=== PATIENT | male | born 1940 | race Caucasian/White ===

== ENCOUNTER → 2017-05-06 08:54 | Emergency (ER) | payer MEDICARE, OTHER ==
[~2017-05-06 08:54] MED LIST: diPHENhydraMINE PO* 25 MG PO ONE
--- NOTE | 2017-05-06 10:31 | ED ---
Allergic Reaction/Systemic - HPI Summary HPI Summary: 76 y/o male with h/o hives, lip swelling x 24 hours, worsened overnight. no medication, no medical problems other than hard of hearing. no SOB, ate breakfast this morning without difficutly, no difficulty swallowing. no prior reactions, has also been working in [place], no insulation exposure. and was mowing lawn yesterday. no new foods, meds. - History of Current Complaint Chief Complaint: EDAllergicReaction Time Seen by Provider: 05/06/17 09:53 Hx Obtained From: Patient, Family/Boat Builder And Repairer - Onset/Duration: Sudden Onset, Started hours ago Timing: Lasting Hours Severity Initially: Mild Severity Currently: Mild Pain Intensity: 0 Pain Scale Used: 0-10 Numeric - Allergies/Home Medications Allergies/Adverse Reactions: Allergies Allergy/AdvReac Type Severity Reaction Status Date / Time SULFA Allergy Mild Rash Uncoded 07/04/15 09:45 PMH/Surg Hx/FS Hx/Imm Hx Previously Healthy: Yes Endocrine/Hematology History: Denies: Hx Anticoagulant Therapy, Hx Diabetes, Hx Thyroid Disease Cardiovascular History: Denies: Hx Hypertension, Hx Pacemaker/ICD Respiratory History: Denies: Hx Asthma, Hx Chronic Obstructive Pulmonary Disease (COPD) History: Denies: Hx Renal Disease Musculoskeletal History: Reports: Hx Arthritis, Other Musculoskeletal History - HAIRLINE CRACK IN PELVIS Sensory History: Reports: Hx Cataracts, Hx Contacts or Glasses - GLASSES, Hx Hearing Aid - BOTH EARS Opthamlomology History: Reports: Hx Cataracts, Hx Contacts or Glasses - GLASSES Neurological History: Denies: Hx Dementia, Hx Seizures Psychiatric History: Reports: Hx Anxiety - HISTORY OF/ OFF AND ON - Cancer History Cancer Type, Location and Year: prostate 1988 - Surgical History Surgery Procedure, Year, and Place: [id number]. DEVIATED SEPTUM. 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 Hx Anesthesia Reactions: Yes - SLOW TO WAKE UP Infectious Disease History: No Infectious Disease History: Denies: Hx Hepatitis, Hx Human Immunodeficiency Virus (HIV), Traveled Outside the US in Last 30 Days - Social History Alcohol Use: Occasionally Substance Use Type: Reports: None Smoking Status (MU): Never Smoked Tobacco Review of Systems Positive: Rash, Other - lip swelling All Other Systems Reviewed And Are Negative: Yes Physical Exam Triage Information Reviewed: Yes Vital Signs On Initial Exam: Initial Vitals Temp Pulse Resp BP Pulse Ox 96.8 F 79 17 136/76 98 05/06/17 08:57 05/06/17 08:57 05/06/17 08:57 05/06/17 08:57 05/06/17 08:57 Vital Signs Reviewed: Yes Appearance: Positive: Well-Appearing, No Pain Distress, Well-Nourished Skin: Positive: Warm, Skin Color Reflects Adequate Perfusion, Other - raised, erythematous circular rash throughout extremities, trunk, back, larges patch L wrist ~ 9cm x 4cm. + warm, multiple urticaria throughout extremities. Head/Face: Positive: Normal Head/Face Inspection Eyes: Positive: EOMI ENT: Positive: Pharynx normal - no swelling noted, minimal swelling noted bottom lip, no difficulty with talking. Neck: Positive: Supple, Nontender Respiratory/Lung Sounds: Positive: Clear to Auscultation, Breath Sounds Present Cardiovascular: Positive: Normal, RRR, Bradycardia Neurological: Positive: Normal, Sensory/Motor Intact, Alert, Oriented to Person Place, Time Psychiatric: Positive: Normal AVPU Assessment: Alert Diagnostics - Vital Signs Vital Signs Temp Pulse Resp BP Pulse Ox 05/06/17 08:57 96.8 F 79 17 136/76 98 - Laboratory Lab Statement: Any lab studies that have been ordered have been reviewed, and results considered in the medical decision making process. Allergic Reaction Course/Dx - Course Course Of Treatment: allergic reactino, likely to new dryer sheets. benadryl, medral dose pack, follow up with PCP - Diagnoses Differential Diagnosis/HQI/PQRI: Positive: Local Allergic Reaction Provider Diagnoses: Allergic reaction, urticaria Discharge - Discharge Plan Condition: Good Disposition: HOME Prescriptions: Methylprednisolone [Medrol Dosepak 4 MG*] 0 mg PO .SEE BILLY INSTRUCTION #1 packet diPHENhydraMINE PO* [Benadryl PO 25 MG TAB*] 25 mg PO Q6H PRN #45 tab PRN Reason: itching, rash Patient Education Materials: General Allergic Reaction (ED) Additional Instructions: - Follow up with primary within 2-3 days if no improvement - Return to ER with shortness of breaht, decreased swallowing, difficulty breathing - Medrol dose pack if symptoms not relieved with Benadryl, use as directed - Benadryl 25mg to 50mg every 6 hours as needed for rash, itching. Do not use fabric softnerer any more
[2017-05-06 10:56] VITALS: BP 127/64
== END | disposition home or self-care (01) ==
LOC: ED 08:54
DX: T78.40XA Allergy, unspecified, initial encounter (principal); R21 Rash and other nonspecific skin eruption; X58.XXXA Exposure to other specified factors, initial encounter; L50.9 Urticaria, unspecified
CPT/HCPCS: 99282

== ENCOUNTER 2017-10-28 07:12 | Day surgery (SDC) | payer MEDICARE, OTHER ==
[~2017-10-28 07:12] MED LIST changes: +Acetaminophen TAB* 325 MG PO PRN; +Buffered Lidocaine 0.9% SYRIN* 5 ML/SYR SYRINGE INTRADERM ONE; -diPHENhydraMINE PO* 25 MG PO ONE
[2017-10-28] MEDS ORDERED: Midazolam* 1 MG/ML 2 ML VIAL (2 MG) ONE (08:35)
[2017-10-28 09:17] VITALS: BP 113/87
--- NOTE | 2017-10-28 09:49 | OP ---
DATE OF OPERATION: 10/28/2017. DATE OF : 1940. SURGEON: Ministerio Solis M.D. PREOPERATIVE DIAGNOSIS: Cataract right eye. POSTOPERATIVE DIAGNOSIS: Cataract right eye. OPERATIVE PROCEDURE: Extracapsular cataract extraction with intraocular lens implant right eye. PROCEDURE: The patient was brought to the operating room after being given 1/2% Alcaine with epineph rine drops in the preoperative area. The eye was prepped and draped in the usual sterile fashion. S terile drape and eyelid speculum were placed. Again, topical 1/2% Alcaine with epinephrine was given . A paracentesis incision was made at the 9 o'clock position with the No.75 blade. Clear cornea inc ision 2.2 x 2.2-mm was created at the 12 o'clock position starting at the anterior limbus using the 2 .2-mm keratome. The anterior chamber was irrigated with 0.4 mL of 1% non-preservative intracameral l idocaine and filled with DisCoVisc. A capsulorrhexis was completed using the cystotome and the Utrat a forceps. Hydrodissection was performed with balanced salt solution. The lens nucleus was removed w ith the Phacoemulsification handpiece without incident. Cortex was removed with the irrigation-aspir ation handpiece. The capsular bag was re-inflated using DisCoVisc and an [id number] implant was inser prachi with the shooter. The irrigation-aspiration handpiece was used to remove all residual DisCoVisc. The eye was refilled with balanced salt solution and the wound checked and found to be watertight. Topical Maxitrol drops were given. [id number]/[facility] [place] #: [id number]
[2017-10-28] MEDS ORDERED: Lidocaine 1% MPF* 2 ML VIAL ONE (10:36)
[2017-10-28] MEDS ORDERED: Proparacaine 0.5% OPHTH.SOL* 15 ML BTL ONE (10:36)
[2017-10-28] MEDS ORDERED: Ketorolac 0.5% OPHTH (NF) 0.5 % 5 ML BTL ONE (10:36)
[2017-10-28] MEDS ORDERED: Neomycin/Polymy/Dex OPTH.SUSP* MAXITROL 0.1% 5 ML ONE (10:36)
[2017-10-28] MEDS ORDERED: Povidone Iodine 5% OPTH* 30 ML BTL ONE (10:36)
[2017-10-28] MEDS ORDERED: Cyclopentolate 1% OPTH.SOL* 2 ML BTL ONE (10:36)
[2017-10-28] MEDS ORDERED: Phenylephrine 2.5% OPTH.SOL* 2 ML BTL ONE (10:36)
[2017-10-28] MEDS ORDERED: Lidocaine 2% EPI 1:200000 MPF* 20 ML VIAL ONE (10:36)
== END 2017-10-28 09:12 | disposition home or self-care (01) ==
LOC: OREAST 07:12
PROVIDERS: ATTEND Specialist
DX: H25.811 Combined forms of age-related cataract, right eye (principal); I10 Essential (primary) hypertension; E78.00 Pure hypercholesterolemia, unspecified; Z88.2 Allergy status to sulfonamides; Z96.1 Presence of intraocular lens
CPT/HCPCS: A9270-GY; J2250; V2632

== ENCOUNTER 2019-11-03 11:21 | Inpatient (IN) | payer MEDICARE, OTHER ==
--- OUTSIDE RECORDS SUMMARY | 2019-11-03 11:38 | XMS REPORT | Continuity of Care Document ---
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 Problem Onset: Social History Type Date Description Comments Sex Unknown Tobacco Use Start: Unknown Patient has never smoked Allergies, Adverse Reactions, Alerts Active Allergies Reaction Severity Comments Date Sulfa Drugs 10/11/2002 Inactive Allergies Sulfa Antibiotics 03/14/2013 Medications Active Medications SIG Qnty Indications Ordering Provider Date Suprep Bowel Prep Kit as directed gonzalo Winters 08/15/2019 MD Gopal 17.5-3.13-1.6GM/177ML Solution Aspirin Adult Low 1 by mouth every Unknown Dose day 81mg Tablets DR Immunizations Description No Information Available Vital Signs Date Vital Result Comment 04/04/2019 10:49am Height 67 inches 5'7" Weight 135.00 lb BMI (Body Mass Index) 21.1 kg/m2 08/29/2015 7:58am Height 66 inches 5'6" Weight 141.00 lb BP Systolic 132 mmHg BP Diastolic 80 mmHg BMI (Body Mass Index) 22.8 kg/m2 Results Test Acquired Date Facility Test Result H/L Range Note Laboratory test 10/12/2019 [facility] [place] SEE RESULT 1 finding Pathology Order BELOW 1 SEE RESULT BELOW Name: ELDER JERONIMO : [address]: Vianey Herron MD Acct: [id number] Unit: [id number] AGE: 79 Location: ENDO Re10/12/19 SEX: M Status: DEP REF SPEC: [id number] MELA: 10/12/19- SUBM DR: Vianey Nolan MD REQ: [id number] RECD: 10/12/19 STATUS: SOUT _ ORDERED: LEVEL 4/2 FINAL DIAGNOSIS 1. Colon, hepatic flexure, biopsy: -- Tubular adenoma. -- No high grade dysplasia or malignancy. 2. Colon, transverse, biopsy: -- Hyperplastic polyp. CLINICAL HISTORY Polyps POST-OPERATIVE DIAGNOSIS Colonoscopy: to terminal ileum; cold snare and jumbo biopsy; 3 hepatic 3-4 mm jumbo biopsy; (1) transverse 3 mm; diverticulosis left greater than right; hemorrhoid GROSS DESCRIPTION 1. The specimen is received in formalin labeled, Hepatic Flexure Polyps, and consists of a 0.9 x 0.3 by up to 0.2 cm aggregate of borja irregular to polypoid soft tissue fragments which is submitted entirely in one cassette. 2. The specimen is received in formalin labeled, Biopsy Transverse Colon Polyp, and consists of a 0.5 x 0.4 a 0.1 cm borja-red irregular to polypoid soft tissue fragment which is CONTINUED ON NEXT PAGE DEPARTMENT OF PATHOLOGY, [address] [place] [address] Enrique Coronado M.D. Director [facility] # [id number] submitted entirely in one cassette. Signed by and Reported on: Ammy Salvador MD 10/13/19 1109 END OF REPORT DEPARTMENT OF PATHOLOGY, [address] [place] [address] Enrique Coronado M.D. Director [facility] # [id number] Procedures Date Code Description Status 10/12/2019 07795 Moderate Sedation Services; Same Phys Each Additional 15 Completed Mins 10/12/2019 34284 Moderate Sedation Services; Same Phys Each Additional 15 Completed Mins 10/12/2019 56604 Colonoscopy W/ Snare RM Of Polyp/Tumor/Lesion Completed 10/12/2019 40303 Colonscopy+Biopsy Completed Medical Devices Description No Information Available Encounters Description No Information Available Assessments Date Code Description Provider 10/12/2019 Z86.010 Personal history of colonic polyps Vianey Herron MD 10/12/2019 D12.3 Benign neoplasm of transverse colon Vianey Herron MD 10/12/2019 K57.30 Diverticulosis of large intestine without Vianey Nolan MD perforation or abscess without bleeding 10/12/2019 K64.8 Other hemorrhoids Vianey Herron MD Plan of Treatment 08/29/2015 - Felicity Martino, CIRCULAR STUFFER-CR10.32 Left lower quadrant painComments:RISKS AND BENEFITS OF THE PROCEDURE WERE DISCUSSED WITH PATIENT. Functional Status Description No Information Available Mental Status Description No Information Available Referrals Description No Information Available
--- OUTSIDE RECORDS SUMMARY | 2019-11-03 11:38 | XMS REPORT | Continuity of Care Document ---
:1940 External Reference #:[id number] Author Name Tom Estes M.D. Address [address] [place] [address] Care Team Providers Name Role Phone Ministerio Young M.D. - Family Care Team Information Senior Production Manager [phone] Medicine Problems Description No Information Available Social History Type Date Description Comments Sex Unknown ETOH Use Rarely consumes alcohol Tobacco Use Start: Unknown Patient has never smoked Smoking Status Reviewed: 09/12/19 Patient has never smoked Allergies, Adverse Reactions, Alerts Active Allergies Reaction Severity Comments Date Sulf Drugs 09/12/2019 Medications Active Medications SIG Qnty Indications Ordering Provider Date Diazepam take 1 tablet by Unknown 10mg Tablets mouth three times a day as Needed Aspir-Low 1 by mouth every Unknown 81mg Tablets DR day Immunizations Description No Information Available Vital Signs Date Vital Result Comment 09/12/2019 1:36pm Intraocular Pressure Right Eye 15 mmHg Intraocular Pressure Left Eye 16 mmHg Results Description No Information Available Procedures Date Code Description Status 09/12/2019 01074 Ophthalmoscopy Initial Completed 09/12/2019 53675 Eye Exam New Comprehensive Completed Medical Devices Description No Information Available Encounters Description No Information Available Assessments Date Code Description Provider 09/12/2019 Z96.1 Presence of intraocular lens Tom Estes M.D. 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 09/12/2019 H43.813 Vitreous degeneration, bilateral Tom Estes M.D. Plan of Treatment 09/12/2019 - Tom Estes M.D.Z96.1 Presence of intraocular lensFollow up:1 yrH53.021 Refractive amblyopia, right eyeFollow up:1 yrH43.813 Vitreous degeneration, bilateralFollow up:1 yr Functional Status Description No Information Available Mental Status Description No Information Available Referrals Description No Information Available
[2019-11-03] MEDS ORDERED: Diazepam TAB(*) 5 MG PO ONE (11:45)
[2019-11-03 12:05] LABS: ABS Basophils 0.1 10^3/ul (0-0.2); ABS Eosinophils 0.1 10^3/ul (0-0.6); ABS Lymphocytes 0.9 10^3/ul (1.0-4.8); ABS Monocytes 0.3 10^3/ul (0-0.8); ABS Neutrophils 2.4 10^3/ul (1.5-7.7); Eosinophil % 3.4 %; Hematocrit 45 % (42-52); Hemoglobin 15.3 g/dL (14.0-18.0); Mean Corpuscular HGB Conc 34 g/dL (31-36); Mean Corpuscular Hemoglobin 30 pg (27-31); Mean Corpuscular Volume 86 fL (80-94); Mean Platelet Volume 6.8 fL (7.4-10.4); Platelet Count 226 10^3/uL (150-450); Red Blood Count 5.19 10^6 /uL (4.18-5.48); Red Cell Distribution Width 14 % (10-15); White Blood Count 3.7 10^3/uL (3.5-10.8)
--- NOTE | 2019-11-03 12:06 | ED ---
HPI Chest Pain - HPI Summary HPI Summary: This patient is a 79-year-old male with a hx of prostate CA and no other significant past medical history presenting to the ED with chest tightness x 2- 3 days. States he started to have some anxiety 3 days ago relating to his car. He states that's when the chest tightness developed. He states the tightness has been intermittent, sometimes lasting minutes sometimes lasting hours. He does not describe this as a pain. He denies any SOB. He notes one episode of walking up until yesterday and he became short of breath, however has not been more short of breath than normal. He has had these symptoms in the past, stating once or twice. He does have the prescription for Valium at home for generalized anxiety disorder, but did not take this as he "doesn't want to get addicted." Denies any radiation of pain. No boyd, visual changes, n/v/c/d. Denies any recent illness, fevers, cough, sweats, congestion or chills. Denies any weakness. - History of Current Complaint Chief Complaint: EDChestPainROMI Time Seen by Provider: 11/03/19 11:30 Hx Obtained From: Patient Onset/Duration: Started Days Ago Timing: Constant Initial Severity: Mild Current Severity: Mild Pain Intensity: 2 Pain Scale Used: 0-10 Numeric Chest Pain Location: Upper Sternal Chest Pain Radiates: Yes Chest Pain Radiates To:: Neck Character: Crushing, Tightness Aggravating Factor(s): Exertion Alleviating Factor(s): Nothing Associated Signs and Symptoms: Positive: Anxiety. Negative: Chest Pain, Recent Stress - Risk Factors Pulmonary Embolism Risk Factors: Negative TAD Risk Factors: Negative - Allergy/Home Medications Allergies/Adverse Reactions: Allergies Allergy/AdvReac Type Severity Reaction Status Date / Time Sulfa (Sulfonamide Allergy Rash Verified 11/03/19 11:33 Antibiotics) Home Medications: Home Medications Aspirin EC TAB* [Ecotrin EC Low Dose 81 MG*] 81 mg PO DAILY 10/05/19 [History Confirmed 11/03/19] PMH/Surg Hx/FS Hx/Imm Hx Previously Healthy: Yes Endocrine/Hematology History: Denies: Hx Anticoagulant Therapy, Hx Diabetes, Hx Thyroid Disease Cardiovascular History: Reports: Other Cardiovascular Problems/Disorders - Abdominal Aortic Aneurysm on CT 2014 Denies: Hx Hypertension, Hx Pacemaker/ICD Respiratory History: Denies: Hx Asthma, Hx Chronic Obstructive Pulmonary Disease (COPD), Other Respiratory Problems/Disorders GI History: Reports: Other GI Disorders - occasional heart burn, depends on what he eats History: Reports: Hx Kidney Infection - 30 years ago, Other Problems/ Disorders - Prostate cancer-2009 Denies: Hx Renal Disease Musculoskeletal History: Reports: Hx Arthritis, Other Musculoskeletal History - HAIRLINE CRACK IN PELVIS, 40-50 years ago Sensory History: Reports: Hx Cataracts - Right eye at present, left eye cataract removed, Hx Contacts or Glasses - GLASSES, Hx Hearing Aid - BOTH EARS Denies: Hx Glaucoma Opthamlomology History: Reports: Hx Cataracts - Right eye at present, left eye cataract removed, Hx Contacts or Glasses - GLASSES Denies: Hx Glaucoma Neurological History: Reports: Hx Migraine - once every 2-3 months Denies: Hx Dementia, Hx Seizures, Other Neuro Impairments/Disorders Psychiatric History: Reports: Hx Anxiety - HISTORY OF/ Rarely uses valium - Cancer History Cancer Type, Location and Year: prostate 1988 Hx Chemotherapy: No - radiation - Surgical History Surgery Procedure, Year, and Place: Prostate cancer - radiation. DEVIATED SEPTUM. 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 Cataract extraction left eye 2011 Hx Anesthesia Reactions: Yes - SLOW TO WAKE UP - Immunization History Hx Pertussis Vaccination: No Immunizations Up to Date: Yes Infectious Disease History: No Infectious Disease History: Denies: Hx Hepatitis, Hx Human Immunodeficiency Virus (HIV), Traveled Outside the [place] in Last 30 Days - Social History Occupation: Unemployed Lives: With Family Alcohol Use: Occasionally Hx Substance Use: No Substance Use Type: Reports: None Smoking Status (MU): Never Smoked Tobacco Review of Systems Negative: Fever, Chills, Fatigue, Skin Diaphoresis Negative: Palpitations, Chest Pain Negative: Shortness Of Breath, Cough Genitourinary: Negative Positive: no symptoms reported, see HPI Negative: Arthralgia, Myalgia Neurological/Mental Status: Negative Positive: Anxious All Other Systems Reviewed And Are Negative: Yes Physical Exam Triage Information Reviewed: Yes Vital Signs On Initial Exam: Initial Vitals Temp Pulse Resp BP Pulse Ox 98.1 F 76 16 186/97 98 11/03/19 11:31 11/03/19 11:31 11/03/19 11:31 11/03/19 11:31 11/03/19 11:31 Vital Signs Reviewed: Yes Appearance: Positive: Well-Appearing, Well-Nourished Skin: Positive: Warm, Skin Color Reflects Adequate Perfusion Head/Face: Positive: Normal Head/Face Inspection Eyes: Positive: EOMI, JESSE, Conjunctiva Clear Neck: Positive: Supple, No Lymphadenopathy Respiratory/Lung Sounds: Positive: Clear to Auscultation, Breath Sounds Present Cardiovascular: Positive: RRR, Pulses are Symmetrical in both Upper and Lower Extremities Abdomen Description: Positive: Nontender, No Organomegaly Bowel Sounds: Positive: Present Musculoskeletal: Positive: Normal, Strength/ROM Intact Neurological: Positive: Speech Normal Psychiatric: Positive: Normal, Affect/Mood Appropriate Procedures - Sedation Patient Received Moderate/Deep Sedation with Procedure: No Diagnostics - Vital Signs Vital Signs Temp Pulse Resp BP Pulse Ox 11/03/19 11:31 98.1 F 76 16 186/97 98 - Laboratory Result Diagrams: 11/03/19 11:47 11/03/19 11:47 Lab Statement: Any lab studies that have been ordered have been reviewed, and results considered in the medical decision making process. Chest Pain Course/Dx - Course Course Of Treatment: During his course, the patient is evaluated for chest tightness which began 3 days ago and has been intermittent since that time. He does admit to some anxiety. No cardiac history. Labs obtained: All labs WNL except for an elevated troponin of 0.04. Chest x-ray obtained: No acute cardiopulmonary findings. Valium 10 mg given. This improved symptoms, patient denying any pain or chest tightness at this time. Heart score = moderate score = Risk of MACE of 12-16.6%. Discussed with hospitalist who will admit. - Chest Pain Differential Diagnosis/HQI/PQRI: Angina, Other: - Diagnoses Provider Diagnoses: Elevated troponin, Anxiety, Chest pain Discharge ED - Sign-Out/Discharge Documenting (check all that apply): Patient Departure - Discharge Plan Condition: Fair Disposition: ADMITTED TO [facility] - Billing Disposition and Condition Condition: FAIR Disposition: Admitted to [facility] - Attestation Statements Provider Attestation: I was available for consult. This patient was seen by the [facility]. The patient was not presented to, seen by, or examined by me. Elliot Colbert MD
[2019-11-03 12:23] LABS: ALT 21 U/L (7-52); AST 21 U/L (13-39); Albumin 4.1 g/dL (3.2-5.2); Albumin/Globulin Ratio 1.4 (1-3); Alkaline Phosphatase 114 U/L (34-104); Anion Gap 5 mmol/L (2-11); BUN/Creatinine Ratio 17.5 (8-20); Blood Urea Nitrogen 18 mg/dL (6-24); CO2 Carbon Dioxide 27 mmol/L (22-32); Calcium 9.7 mg/dL (8.6-10.3); Chloride 103 mmol/L (101-111); EGFR African American 84.5 (>60); EGFR Non-African American 69.8 (>60); Glucose 99 mg/dL (70-100); Potassium 4.4 mmol/L (3.5-5.0); Sodium 135 mmol/L (135-145); Total Protein 7.1 g/dL (6.4-8.9)
[2019-11-03 12:25] LABS: INR 0.91 (0.82-1.09)
[2019-11-03 12:27] LABS: Troponin I 0.04 ng/mL (<0.03)
[2019-11-03 14:49] LABS: Troponin I 0.05 ng/mL (<0.03)
[2019-11-03 14:55] LABS: HDL Cholesterol 35.6 mg/dL
[2019-11-03] MEDS ORDERED: Diazepam TAB(*) 5 MG PO PRN (15:01)
[2019-11-03] MEDS ORDERED: Ondansetron INJ* 2 MG/ML VIAL IV PRN (15:02)
[2019-11-03] MEDS ORDERED: Acetaminophen TAB* 325 MG PO PRN (15:02)
[2019-11-03] MEDS ORDERED: amLODIPine TAB* 5 MG PO ONE (15:11)
[2019-11-03] MEDS: Atorvastatin* 80 MG TAB PO SCH (15:34)
[2019-11-03 15:42] LABS: Magnesium 1.9 mg/dL (1.9-2.7)
[2019-11-03] MEDS ORDERED: Enoxaparin(*) 40 MG/0.4 ML SYR SUBCUT SCH (16:00)
--- NOTE | 2019-11-03 16:41 | ECHO ---
*[facility]* [place] [address] Fax #: [phone] Transthoracic Echocardiogram Patient: Elder Lawrence : 1940 Study Date: 11/03/2019 Age: 79 Gender: M HR: 76 bpm Height: 66 in /167.6 cm BSA: 1.71 m^2 Weight: 137.7 lb /62.6 kg BMI: 22.3 kg/m^2 *Senior Label Specialist: Cele Chandler [facility] *Referring Physician: * Mansi Tang *Reading Physician: * Robb Singleton MD Indications: Chest Pain, unspecified. History: Prostate cancer, AAA. Conclusions Summary: - Left ventricle: Systolic function is normal. The estimated ejection fraction is 55-60%. Doppler parameters are consistent with abnormal left ventricular relaxation (grade 1 diastolic dysfunction). - Mitral valve: Prolapse. There is mild regurgitation. - Aortic valve: There is trace to mild regurgitation. Study data: Transthoracic echocardiogram. Procedure: Transthoracic echocardiography was performed. Image quality was good. Complete 2D, spectral Doppler, and color flow Doppler. Location: Emergency department. Patient status: Inpatient. Patient room number: 5. No prior study is available for comparison. Rhythm: Normal sinus rhythm. Findings Left ventricle: The cavity size is at the lower limits of normal. Wall thickness is mildly increased. Systolic function is normal. The estimated ejection fraction is 55-60%. Wall motion is normal; there are no regional wall motion abnormalities. Doppler parameters are consistent with abnormal left ventricular relaxation (grade 1 diastolic dysfunction). Right ventricle: The cavity size is normal. Systolic function is normal. Left atrium: The atrium is normal in size. Right atrium: The atrium is normal in size. Atrial septum: The atrial septum appears aneurysmal. Mitral valve: The leaflets are mildly thickened. Prolapse. There is no evidence of stenosis. There is mild regurgitation. Aortic valve: The valve is trileaflet. The leaflets are mildly thickened. There is no evidence of stenosis. There is trace to mild regurgitation. Tricuspid valve: The leaflets are normal thickness. There is no evidence of stenosis. There is trace regurgitation. Pulmonic valve: The leaflets are normal thickness. There is no evidence of stenosis. There is trace regurgitation. Aorta: There is plaque visualized in the Aortic root. The aortic root appears normal. The aortic arch appears normal. Pericardium: There is no significant pericardial effusion. Pulmonary arteries: Systolic pressure can not be accurately estimated. Systemic veins: Inferior vena cava: The vessel is normal in size. There is (>= 50%) respiratory change in the IVC dimension. Measurements Left ventricle Value Ref Aortic valve Value Ref BETH, LAX (L) 4.1 cm 4.2 - 5.8 Ayala diam, ED 2.0 cm ---- ESD, LAX 3.5 cm 2.5 - 4.0 Peak v, S 1.17 m/sec ---- FS, LAX (L) 15 % 25 - 43 VTI, S 24.5 cm ---- PW, ED, LAX 1.0 cm 0.6 - 1.0 Mean grad, S 3.0 mm Hg ---- E', lat ayala, TDI (L) 7.0 cm/sec >=10.0 Peak grad, S 5.0 mm Hg ---- E/e', lat ayala, 7 TDI Mitral valve Value Ref E', med ayala, TDI (L) 4.2 cm/sec >=7.0 Peak E 0.51 m/sec ---- E/e', med ayala, 12 Peak A 0.89 m/sec -- -- TDI Decel time 119 ms ---- E', avg, TDI 5.6 cm/sec Peak E/A ratio 0.6 -- -- E/e', avg, TDI 9 <=14 Pulmonic valve Value Ref LVOT Value Ref Peak v, S 0.61 m/sec ---- Peak aditya, S 0.67 m/sec Peak grad, S 1.0 mm Hg ---- Mean grad, S 1 mm Hg Aortic root Value Ref Ventricular septum Value Ref Root diam 3.0 cm <3.9 IVS, ED (H) 1.1 cm 0.6 - 1.0 Root max diam, ED 3.0 cm <3.9 Right ventricle Value Ref Ascending aorta Value Ref BETH, LAX 2.7 cm AAo AP diam, S 2.7 cm ---- BETH minor ax, A4C 3.4 cm 1.9 - 3.5 AAo AP diam/bsa, S 1.6 cm/m^2 ---- mid Aortic arch Value Ref Left atrium Value Ref Arch diam 2.9 cm ---- AP dim, ES 3.00 cm 3.00 - Arch diam/bsa 1.7 cm/m^2 ---- 4.00 ML dim, A4C 3.4 cm Decending aorta Value Ref SI dim, A4C 4.7 cm Navin peak aditya 0.48 m/sec ---- Vol/bsa, ES, A/L 26 ml/m^2 16 - 34 Inferior vena cava Value Ref Right atrium Value Ref Diam 1.6 cm ---- SI dim, ES 3.8 cm 3.4 - 5.3 ML dim, ES, A4C 4.3 cm 2.6 - 4.4 Estimated RAP 8 mm Hg Legend: (L) and (H) froylan values outside specified reference range. Prepared and electronically signed by Robb Singleton MD 11/03/2019 16:40
[2019-11-03] MEDS: Metoprolol Tartrate TAB* 25 MG PO SCH ×2 (17:55→20:18)
--- NOTE | 2019-11-03 18:43 | HP ---
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 Bernard. PROVIDER: Sadaf Wilkinson NP ATTENDING PHYSICIAN: Dr. Carpenter.* (DICTATED BY SADAF WILKINSON NP) CHIEF COMPLAINT: Chest tightness. HISTORY OF PRESENT ILLNESS: This is a 79-year-old male with past medical history significant for hypertension, panic attacks, prostate cancer, who came to the emergency room on 11/03/19 after experiencing chest tightness for the past 2 to 3 days. He felt that it was triggered by anxiety surrounding his car troubles. He states that he normally has high anxiety and has been taking Valium for over 40 years for it. His chest tightness is intermittent, lasting anywhere from minutes to hours. Yesterday, he began to feel short of breath. At no point has he had any chest pain, but he feels this heaviness across the front of his chest and his throat. It is better after he takes his Valium, it is worse with stress. He also noted that in the past few days he has become increasingly tired and short of breath with ambulation, which is new for him as he normally is able to tolerate quite a bit of physical exercise. He denies any recent trauma to his chest. He reports having heartburn 3+ times a week, which he treats by mixing baking soda with water, though he is also concerned the fact that this has been ongoing for several years and he is aware that this can cause cancer if left untreated and was feeling anxiety about that. In the emergency room, labs were drawn, chest x-ray was done, and EKG was performed. Labs were drawn which showed a mildly elevated troponin and elevated lipid levels. The patient's HEART score was 5, which indicates 12% to 16.6% risk of major adverse cardiovascular event. The hospitalists were asked to evaluate the patient for admission. PAST MEDICAL HISTORY: 1. Hypertension. 2. Hypercholesterolemia. 3. Prostate cancer with radiation. 4. Panic attacks. 5. Insomnia. 6. Anxiety. 7. Abdominal aneurysm, of which vessel he is unsure. 8. GERD. PAST SURGICAL HISTORY: 1. Cataract extraction bilaterally in 1979. 2. He had a septoplasty in 1988. 3. He had right hand surgery. HOME MEDICATIONS: 1. Aspirin 81 mg. 2. Valium 5 mg 3 times a day as needed. ALLERGIES: SULFA. FAMILY HISTORY: Denies any significant family history stating that his siblings and parents were all healthy and lived a long life. SOCIAL HISTORY: Denies any tobacco use or recreational substances. He drinks 1 to 2 beers a month. 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 REVIEW OF SYSTEMS: A 12-point system review was performed, which was positive for chest tightness and heaviness, shortness of breath with exertion, fatigue, heartburn. Negative for fevers, chills, cough, abdominal pain, nausea, vomiting , or issues moving his bowel or bladder. PHYSICAL EXAMINATION GENERAL: This is a well-developed, older gentleman seen resting in the bed, in no acute distress. VITAL SIGNS: 98.1 Fahrenheit, 81 pulse, 19 respirations, 98% oxygen on room air , 175/115 blood pressure. HEENT: Conjunctive pink and moist. PERRLA. EOMs intact. ENT: Mucous membranes moist. Oropharynx clear. NECK: Supple. RESPIRATORY: Lung sounds clear throughout bilaterally on room air. No accessory muscle use noted. CARDIAC: S1, S2 present. Heart rate regular. No murmurs, gallops, or rubs appreciated. Negative for carotid bruit. ABDOMEN: Soft, nontender, nondistended with positive bowel sounds x4. MUSCULOSKELETAL: No clubbing or cyanosis of the digits. NEURO: Sensation intact to light touch. No focal deficits appreciated. PSYCH: He is alert and oriented x4. Anxious. Thought content organized. SKIN: Intact with no lesions or rashes noted. DIAGNOSTIC STUDIES: EKG showed sinus rhythm. Chest x-ray showed hyperinflation consistent with COPD, but no active cardiopulmonary disease. PERTINENT LAB DATA: Troponin is 0.04 that increased to 0.05. Triglycerides 426 , cholesterol 294, LDL cholesterol direct 183, HDL cholesterol 35.6. WBC 3.7, hemoglobin 15.3, hematocrit 45. ASSESSMENT AND PLAN: My impression is this is a 79-year-old male with past medical history significant for hypertension, hypercholesterolemia, and prostate cancer who is being admitted on 11/03/19 for chest pain. 1. Chest pain. There were no ST elevations or depressions noted on his EKG. Troponin is mildly elevated. I will continue to trend it q.3 hours until it levels or decreases. He is not currently having any signs or symptoms of acute coronary syndrome. Ordered hemoglobin A1c and lipids. Lipids are markedly elevated. Started the patient on high intensity atorvastatin. We will place the patient on telemetry monitoring and get an echocardiogram and perform a nonnuclear stress test in the a.m. He is also to continue his aspirin 81 mg. I do not feel that I need to give him a loading dose of aspirin at this time. Again, his HEART score was 5. 2. Anxiety. I will continue his Valium on an as needed basis. I did have a conversation about the benefits of SSRIs that he could follow up with his primary care physician on an outpatient basis. 3. Gastroesophageal reflux disease. Due to his chronic ongoing and frequent nature of his heartburn, I have started him on pantoprazole during his stay and he should continue that for the next 6 to 8 weeks as well as follow up with his primary care physician about this. 4. Hypertension. He states that he has not been treated for this. I will start him on amlodipine 5 mg p.o. daily with a target blood pressure being below 140/90. Current blood pressures in the 170s over one teens. 5. Hypercholesteremia. The patient stated that he had taken himself off his medications because of things he was seeing on the TV about how they were causing a lot of adverse effects. However, I did speak to the patient about the correlation between hyperlipidemia and adverse cardiac events, and he is agreeable to starting back on the atorvastatin. He is aware that he is to let somebody know should he develop any muscle pains or cramping. 6. DVT prophylaxis: Initiate Lovenox. 7. Code status is full code. CONDITION: Guarded. DISPOSITION: Admit OBV to [address] [place] [address] TIME SPENT: Time spent on the patient is about 60 minutes with 30 of that spent [id number]. SADAF WILKINSON, MEDICATION AIDE [id number]/[facility] #: [id number] MTDD
[2019-11-03 19:34] LABS: Troponin I 0.04 ng/mL (<0.03)
[2019-11-04 05:49] LABS: ABS Basophils 0.1 10^3/ul (0-0.2); ABS Eosinophils 0.1 10^3/ul (0-0.6); ABS Lymphocytes 0.9 10^3/ul (1.0-4.8); ABS Monocytes 0.3 10^3/ul (0-0.8); ABS Neutrophils 2.4 10^3/ul (1.5-7.7); Eosinophil % 3.7 %; Hematocrit 45 % (42-52); Hemoglobin 15.1 g/dL (14.0-18.0); Lymphocyte % 25.2 %; Mean Corpuscular HGB Conc 34 g/dL (31-36); Mean Corpuscular Hemoglobin 29 pg (27-31); Mean Corpuscular Volume 87 fL (80-94); Mean Platelet Volume 6.8 fL (7.4-10.4); Nucleated Red Blood Cells % 0.2; Platelet Count 236 10^3/uL (150-450); Red Blood Count 5.15 10^6 /uL (4.18-5.48); Red Cell Distribution Width 14 % (10-15); White Blood Count 3.8 10^3/uL (3.5-10.8)
[2019-11-04 06:08] LABS: BUN/Creatinine Ratio 21.4 (8-20); Calcium 9.6 mg/dL (8.6-10.3); EGFR African American 89.5 (>60); Potassium 4.5 mmol/L (3.5-5.0)
[2019-11-04] MEDS ORDERED: Heparin VIAL(*) 5000 UNITS/ML VIAL (FIVE THOUSAND) ONE (09:49)
[2019-11-04] MEDS ORDERED: Heparin VIAL(*) 5000 UNITS/ML VIAL (FIVE THOUSAND) IV ONE (09:53)
[2019-11-04] MEDS ORDERED: VERAPAMIL 2.5 MG/ML 2 ML VIAL ** 5 mg/2 ml ONE (09:55)
[2019-11-04] MEDS ORDERED: Midazolam* 1 MG/ML 5 ML VIAL (5 MG) ONE (09:55)
[2019-11-04] MEDS: Aspirin EC TAB* 81 MG TAB.EC ONE ×2 (09:55→10:05)
[2019-11-04] MEDS ORDERED: fentaNYL* 50 MCG/ML 2 ML VIAL (100 MCG VIAL) ONE (09:55)
[2019-11-04] MEDS ORDERED: Lidocaine 1% INJ* 10 MG/ML 30 ML SDV ONE (09:55)
[2019-11-04] MEDS ORDERED: nitroGLYCERIN DRIP* 25,000 MCG/250 ML BTL ONE (09:55)
[2019-11-04] MEDS ORDERED: Heparin 2 UNITS/ML IVPREMIX* 2,000 ML IV ONE (09:55)
[2019-11-04] MEDS ORDERED: Iohexol 350 (CONTRAST) 200 ML MDV IV ONE ×2 (09:55→09:56)
[2019-11-04] MEDS ORDERED: Heparin(*) 1000 UNIT/ML 10 ML VIAL CATH LAB IV ONE ×2 (09:55→09:56)
[2019-11-04] MEDS: Ticagrelor* 90 MG TAB PO ONE ×2 (09:57→10:06)
[2019-11-04] MEDS ORDERED: Ticagrelor* 90 MG TAB PO ONE (09:57)
[2019-11-04] MEDS ORDERED: Aspirin 81 mg CHEW TAB* 81 MG TAB.CHEW PO ONE (09:57)
[2019-11-04] MEDS ORDERED: diPHENhydraMINE PO* 25 MG PO PRN (09:58)
[2019-11-04] MEDS ORDERED: Bivalirudin(*) 250 MG VIAL ONE (09:59)
[2019-11-04] MEDS ORDERED: NS 0.9% 1000 ML** 1,000 ML IV SCH ×2 (10:00→11:15)
[2019-11-04] MEDS: Aspirin EC TAB* 81 MG TAB.EC PO SCH (10:02)
[2019-11-04] MEDS ORDERED: DOPamine 800 MG/250 ML IVPREM* 800 MG/250 ML ML CENTR ONE (10:26)
[2019-11-04] MEDS ORDERED: Atropine SYRINGE* 0.1 MG/ML 10 ML SYRINGE (1 MG) ONE ×2 (10:26→11:05)
[2019-11-04] MEDS ORDERED: Metoprolol Tartrate IV* 1 MG/ML 5 ML VIAL ONE (10:30)
[2019-11-04] MEDS ORDERED: Adenosine* 3 MG/ML VIAL ONE (10:38)
[2019-11-04] MEDS ORDERED: Norepinephrine VIAL* 1 MG/ML 4 ML VIAL ONE (11:04)
[2019-11-04] MEDS: amLODIPine TAB* 5 MG PO SCH (11:07)
[2019-11-04] MEDS: Pantoprazole TAB * 40 MG TAB PO SCH (11:08)
[2019-11-04] MEDS: Metoprolol Tartrate TAB* 25 MG PO SCH ×2 (11:08→20:45)
[2019-11-04] MEDS ORDERED: Nitroglycerin TAB 0.4 MG* 0.4 MG TAB SL PRN (11:12)
[2019-11-04 13:16] LABS: Creatine Kinase 267 U/L (10-223)
[2019-11-04 13:20] LABS: Troponin I 2.95 ng/mL (<0.03)
[2019-11-04 13:21] LABS: CKMB ng/mL 48.2 ng/mL (0.6-6.3)
--- NOTE | 2019-11-04 15:33 | PN ---
Date of Service: 11/04/19 Critical Care Services: Mr. Lawrence was admitted on 11/03/19 with chest pain. After a reportedly normal stress test, he developed chest pain and was found to have a STEMI and was taken emergently to the culture media laboratory assistant where a stent was placed. Mr. Lawrence states he is feeling well now. He only complains of a headache. He denies chest pain or SOB. Vital Signs: Temp Pulse Resp BP SpO2 FiO2 96.7 F 78 22 89/58 99 11/04/19 11:30 11/04/19 13:01 11/04/19 13:01 11/04/19 13:01 11/04/19 13:01 Physical Exam: General: Alert, NAD HEENT: Normocephalic, atraumatic, non-icteric sclera, moist oral mucosa Neck: soft, supple, no JVD CV: Regular rate and rhythm, no murmurs or rubs Pulm/Chest: Good bilateral air entry, no rhonchi or rales, no wheeze Abdomen/GI: soft, nontender, nondistended, +BS noted MSK/Skin: warm, dry, intact, +2 pulses, no edema or cyanosis Neuro: A&Ox3, no gross focal deficits Psych: Appropriate affect Fluid Balance (Past 24 Hours): Intake & Output 11/02/19 11/03/19 11/04/19 11/05/19 06:59 06:59 06:59 06:59 Intake Total 450 240 Output Total 0 Balance 450 240 Weight 134 lb 11.239 oz Intake: Oral 450 240 Output: Urine 0 Labs: Laboratory Results - last 24 hr 11/03/19 11/03/19 11/03/19 14:18 14:29 18:59 WBC RBC Hgb Hct MCV MCH MCHC RDW Plt Count MPV Neut % (Auto) Lymph % (Auto) [place] % (Auto) Eos % (Auto) Baso % (Auto) Absolute Neuts (auto) Absolute Lymphs (auto) Absolute Monos (auto) Absolute Eos (auto) Absolute Basos (auto) Absolute Nucleated RBC Nucleated RBC % POC Activ Clotting Time Sodium Potassium Chloride Carbon Dioxide Anion Gap BUN Creatinine Est GFR ( Amer) Est GFR (Non-Af Amer) BUN/Creatinine Ratio Glucose Hemoglobin A1c 5.9 H Calcium Magnesium 1.9 Total Creatine Kinase CK-MB (CK-2) Troponin I 0.04 H* Blood Type Antibody Screen 11/04/19 11/04/19 11/04/19 05:25 05:25 05:25 WBC 3.8 RBC 5.15 Hgb 15.1 Hct 45 MCV 87 MCH 29 MCHC 34 RDW 14 Plt Count 236 MPV 6.8 L Neut % (Auto) 62.8 Lymph % (Auto) 25.2 [place] % (Auto) 6.9 Eos % (Auto) 3.7 Baso % (Auto) 1.4 Absolute Neuts (auto) 2.4 Absolute Lymphs (auto) 0.9 L Absolute Monos (auto) 0.3 Absolute Eos (auto) 0.1 Absolute Basos (auto) 0.1 Absolute Nucleated RBC 0.0 Nucleated RBC % 0.2 POC Activ Clotting Time Sodium 136 Potassium 4.5 Chloride 104 Carbon Dioxide 26 Anion Gap 6 BUN 21 Creatinine 0.98 Est GFR ( Amer) 89.5 Est GFR (Non-Af Amer) 74.0 BUN/Creatinine Ratio 21.4 H Glucose 101 H Hemoglobin A1c Calcium 9.6 Magnesium Total Creatine Kinase CK-MB (CK-2) Troponin I Blood Type O Positive Antibody Screen Negative 11/04/19 11/04/19 11/04/19 10:21 10:38 12:50 WBC RBC Hgb Hct MCV MCH MCHC RDW Plt Count MPV Neut % (Auto) Lymph % (Auto) [place] % (Auto) Eos % (Auto) Baso % (Auto) Absolute Neuts (auto) Absolute Lymphs (auto) Absolute Monos (auto) Absolute Eos (auto) Absolute Basos (auto) Absolute Nucleated RBC Nucleated RBC % POC Activ Clotting Time 227 445 Sodium Potassium Chloride Carbon Dioxide Anion Gap BUN Creatinine Est GFR ( Amer) Est GFR (Non-Af Amer) BUN/Creatinine Ratio Glucose Hemoglobin A1c Calcium Magnesium Total Creatine Kinase 267 H CK-MB (CK-2) 48.2 H Troponin I 2.95 H* Blood Type Antibody Screen Studies: Chest xray 11/03/19: IMPRESSION: HYPERINFLATION, CONSISTENT WITH COPD. NO ACTIVE CARDIOPULMONARY DISEASE. Impression: Mr. Lawrence is a 79 M with PMH of hypertension, prostate cancer and anxiety who was admitted on 11/03/19 with concern for chest pain, ultimately found to have STEMI now s/p stent to RCA. Diagnoses: * STEMI * Anxiety * Hypertension * Hyperlipidemia * GERD Plan: Neuro: - A/O x 3, NAD CVS: - STEMI s/p cardiac cath with stent placed to RCA - Asymptomatic now - Appreciate cardiology input. Continue brilinta, atorvastatin, metoprolol - Continue amlodipine for hypertension - Lipid profile pending Resp: - Asymptomatic, no hx of pulmonary disease ID: - No evidence of infection GI- -Nutrition: heart healthy diet Renal- - Creatinine normal - Maintain K > 4, Mag > 2 Heme: - No anemia or other hematologic abnormality Endo: - No hx of DM - Checking HgbA1c Musculosk/Skin: - Bedrest s/p cath per routine Wounds- none Nutrition- Heart healthy diet DVT prophylaxis: SCDs Disposition: Admitted to ICU; Expected LOS>2 midnights; Patient requires Critical Care/ICU for STEMI s/p cardiac cath Patient Clinical Status: Critical Code Status: Full Code Total Critical Care time is 40 minutes, excluding procedures/teaching
[2019-11-04] MEDS: Atorvastatin* 80 MG TAB PO SCH (15:48)
[2019-11-04] MEDS: Ezetimibe TAB* 10 MG PO SCH (18:18)
[2019-11-04 18:31] LABS: Creatine Kinase 408 U/L (10-223)
[2019-11-04 18:34] LABS: CKMB ng/mL 80.8 ng/mL (0.6-6.3)
[2019-11-04 18:36] LABS: Troponin I 9.74 ng/mL (<0.03)
[2019-11-04] MEDS: Ticagrelor* 90 MG TAB PO SCH (20:45)
[2019-11-04 23:38] LABS: Creatine Kinase 276 U/L (10-223)
[2019-11-04 23:44] LABS: CKMB ng/mL 49.1 ng/mL (0.6-6.3)
[2019-11-04 23:45] LABS: Troponin I 11.97 ng/mL (<0.03)
[2019-11-05 04:07] LABS: ABS Eosinophils 0.1 10^3/ul (0-0.6); ABS Lymphocytes 0.9 10^3/ul (1.0-4.8); ABS Monocytes 0.5 10^3/ul (0-0.8); ABS Neutrophils 4.4 10^3/ul (1.5-7.7); Eosinophil % 1.8 %; Hematocrit 38 % (42-52); Lymphocyte % 14.5 %; Mean Corpuscular HGB Conc 34 g/dL (31-36); Mean Corpuscular Hemoglobin 30 pg (27-31); Mean Corpuscular Volume 87 fL (80-94); Mean Platelet Volume 6.8 fL (7.4-10.4); Platelet Count 204 10^3/uL (150-450); Red Blood Count 4.35 10^6 /uL (4.18-5.48); Red Cell Distribution Width 14 % (10-15); White Blood Count 5.9 10^3/uL (3.5-10.8)
[2019-11-05 04:25] LABS: ALT 19 U/L (7-52); AST 43 U/L (13-39); Albumin 3.3 g/dL (3.2-5.2); Albumin/Globulin Ratio 1.4 (1-3); Alkaline Phosphatase 89 U/L (34-104); Anion Gap 4 mmol/L (2-11); BUN/Creatinine Ratio 18.6 (8-20); Blood Urea Nitrogen 19 mg/dL (6-24); CO2 Carbon Dioxide 26 mmol/L (22-32); Calcium 8.8 mg/dL (8.6-10.3); Chloride 106 mmol/L (101-111); Cholesterol 233 mg/dL; EGFR African American 85.5 (>60); EGFR Non-African American 70.6 (>60); Globulin 2.4 g/dL (2-4); Glucose 102 mg/dL (70-100); HDL Cholesterol 29.7 mg/dL; LDL Cholesterol 156 mg/dL; Potassium 4.6 mmol/L (3.5-5.0); Sodium 136 mmol/L (135-145); Total Protein 5.7 g/dL (6.4-8.9); Triglycerides 238 mg/dL
[2019-11-05] MEDS: Ticagrelor* 90 MG TAB PO SCH ×2 (08:02→21:33)
[2019-11-05] MEDS: Pantoprazole TAB * 40 MG TAB PO SCH (08:02)
[2019-11-05] MEDS: Aspirin EC TAB* 81 MG TAB.EC PO SCH (08:02)
[2019-11-05] MEDS: Metoprolol Tartrate TAB* 25 MG PO SCH ×2 (08:02→21:34)
[2019-11-05] MEDS: amLODIPine TAB* 5 MG PO SCH (08:02)
[2019-11-05] MEDS ORDERED: Aspirin 81 mg CHEW TAB* 81 MG TAB.CHEW PO SCH (09:00)
[2019-11-05 09:14] LABS: Troponin I 8.43 ng/mL (<0.03)
--- NOTE | 2019-11-05 09:55 | PN ---
Date of Service: 11/05/19 Critical Care Services: Mr. Lawrence states that he is feeling well this morning. He denies chest pain or SOB. He is happy with the plan for transfer out of the ICU as he knows this is one step closer to getting home. Vital Signs: Temp Pulse Resp BP SpO2 FiO2 98.6 F 55 20 111/68 97 11/05/19 07:15 11/05/19 06:00 11/05/19 06:00 11/05/19 06:00 11/05/19 06:00 Physical Exam: General: Alert, NAD HEENT: Normocephalic, atraumatic, non-icteric sclera, moist oral mucosa Neck: soft, supple, no JVD CV: Regular rate and rhythm, no murmurs or rubs Pulm/Chest: Good bilateral air entry, no rhonchi or rales, no wheeze Abdomen/GI: soft, nontender, nondistended, +BS noted MSK/Skin: warm, dry, intact, +2 pulses+, no edema or cyanosis Neuro: A&Ox3, no gross focal deficits Psych: Appropriate affect Fluid Balance (Past 24 Hours): Intake & Output 11/03/19 11/04/19 11/05/19 11/06/19 06:59 06:59 06:59 06:59 Intake Total 450 3218 Output Total 0 1999 Balance 450 1218 Weight 134 lb 11.239 oz 132 lb 0.91 oz Intake: IV Fluids 1708 NS (0.9%) 1708 Oral 450 1510 Output: Urine 0 1999 Labs: Laboratory Results - last 24 hr 11/04/19 11/04/19 11/04/19 05:25 10:21 10:38 WBC RBC Hgb Hct MCV MCH MCHC RDW Plt Count MPV Neut % (Auto) Lymph % (Auto) [place] % (Auto) Eos % (Auto) Baso % (Auto) Absolute Neuts (auto) Absolute Lymphs (auto) Absolute Monos (auto) Absolute Eos (auto) Absolute Basos (auto) Absolute Nucleated RBC Nucleated RBC % POC Activ Clotting Time 227 445 Sodium Potassium Chloride Carbon Dioxide Anion Gap BUN Creatinine Est GFR ( Amer) Est GFR (Non-Af Amer) BUN/Creatinine Ratio Glucose Hemoglobin A1c Calcium Total Bilirubin AST ALT Alkaline Phosphatase Total Creatine Kinase CK-MB (CK-2) Troponin I Total Protein Albumin Globulin Albumin/Globulin Ratio Triglycerides Cholesterol LDL Cholesterol HDL Cholesterol Blood Type O Positive Antibody Screen Negative 11/04/19 11/04/19 11/04/19 12:50 17:30 17:30 WBC RBC Hgb Hct MCV MCH MCHC RDW Plt Count MPV Neut % (Auto) Lymph % (Auto) [place] % (Auto) Eos % (Auto) Baso % (Auto) Absolute Neuts (auto) Absolute Lymphs (auto) Absolute Monos (auto) Absolute Eos (auto) Absolute Basos (auto) Absolute Nucleated RBC Nucleated RBC % POC Activ Clotting Time Sodium Potassium Chloride Carbon Dioxide Anion Gap BUN Creatinine Est GFR ( Amer) Est GFR (Non-Af Amer) BUN/Creatinine Ratio Glucose Hemoglobin A1c 5.8 H Calcium Total Bilirubin AST ALT Alkaline Phosphatase Total Creatine Kinase 267 H 408 H CK-MB (CK-2) 48.2 H 80.8 H Troponin I 2.95 H* 9.74 H* Total Protein Albumin Globulin Albumin/Globulin Ratio Triglycerides Cholesterol LDL Cholesterol HDL Cholesterol Blood Type Antibody Screen 11/04/19 11/05/19 11/05/19 22:55 04:00 04:00 WBC 5.9 RBC 4.35 Hgb 13.0 L Hct 38 L MCV 87 MCH 30 MCHC 34 RDW 14 Plt Count 204 MPV 6.8 L Neut % (Auto) 75.1 Lymph % (Auto) 14.5 [place] % (Auto) 7.8 Eos % (Auto) 1.8 Baso % (Auto) 0.8 Absolute Neuts (auto) 4.4 Absolute Lymphs (auto) 0.9 L Absolute Monos (auto) 0.5 Absolute Eos (auto) 0.1 Absolute Basos (auto) 0.0 Absolute Nucleated RBC 0.0 Nucleated RBC % 0.0 POC Activ Clotting Time Sodium Potassium Chloride Carbon Dioxide Anion Gap BUN Creatinine Est GFR ( Amer) Est GFR (Non-Af Amer) BUN/Creatinine Ratio Glucose Hemoglobin A1c 5.8 H Calcium Total Bilirubin AST ALT Alkaline Phosphatase Total Creatine Kinase 276 H CK-MB (CK-2) 49.1 H Troponin I 11.97 H* Total Protein Albumin Globulin Albumin/Globulin Ratio Triglycerides Cholesterol LDL Cholesterol HDL Cholesterol Blood Type Antibody Screen 11/05/19 04:00 WBC RBC Hgb Hct MCV MCH MCHC RDW Plt Count MPV Neut % (Auto) Lymph % (Auto) [place] % (Auto) Eos % (Auto) Baso % (Auto) Absolute Neuts (auto) Absolute Lymphs (auto) Absolute Monos (auto) Absolute Eos (auto) Absolute Basos (auto) Absolute Nucleated RBC Nucleated RBC % POC Activ Clotting Time Sodium 136 Potassium 4.6 Chloride 106 Carbon Dioxide 26 Anion Gap 4 BUN 19 Creatinine 1.02 Est GFR ( Amer) 85.5 Est GFR (Non-Af Amer) 70.6 BUN/Creatinine Ratio 18.6 Glucose 102 H Hemoglobin A1c Calcium 8.8 Total Bilirubin 0.70 AST 43 H ALT 19 Alkaline Phosphatase 89 Total Creatine Kinase CK-MB (CK-2) Troponin I 8.43 H* Total Protein 5.7 L Albumin 3.3 Globulin 2.4 Albumin/Globulin Ratio 1.4 Triglycerides 238 Cholesterol 233 LDL Cholesterol 156 HDL Cholesterol 29.7 Blood Type Antibody Screen Impression: Mr. Lawrence is a 79 M with PMH of hypertension, prostate cancer and anxiety who was admitted on with concern for chest pain, ultimately found to have STEMI now s/p stent to RCA. Diagnoses: STEMI Anxiety Hypertension Hyperlipidemia GERD Plan: Neuro: - A/O x 3, NAD CVS: - Appreciate cardiology support, STEMI s/p cardiac cath with stent placed to RCA , has 80% lesion to LAD which was not stented - Plan for echo tomorrow to decide about appropriate tx for LAD - Asymptomatic now - Continue brilinta, atorvastatin, zetia, metoprolol - Continue amlodipine for hypertension Resp: - Asymptomatic, no hx of pulmonary disease ID: - No evidence of infection GI: - heart healthy diet Renal: - Creatinine normal - Maintain K > 4, Mag > 2 Heme: - No anemia or other hematologic abnormality Endo: - No hx of DM - HgbA1c 5.8 Musculosk/Skin: - Up with assistance Wounds: - none DVT prophylaxis: SCDs Disposition: Transfer to telemetry unit Patient Clinical Status: Guarded, improved Code Status: Full Code Total Critical Care time is 40 minutes, excluding procedures/teaching
--- NOTE | 2019-11-05 10:59 | CATH ---
CC: Dr. Bernard; Dr. Robb Singleton, [facility] * CARDIAC CATHETERIZATION AND INTERVENTIONAL REPORT: DATE OF PROCEDURE: 11/04/19 INDICATION FOR THE PROCEDURE: The patient with acute ST segment elevation inferior wall myocardial infarction. PROCEDURE: Coronary arteriography, balloon angioplasty and placement of a 2.75 x 26 mm long Orsiro drug-eluting stent, post dilated to 2.85 mm in the proximal right coronary artery, left heart catheterization, left ventriculography. CONSENT: The patient was interviewed, examined on the floor of the hospital where the risks and benefits were explained. He understood them and wished to proceed. PRECARDIAC CATHETERIZATION LABORATORY RESULTS: Hemoglobin and hematocrit of 15.1 and 45 with a platelet count of 236,000. BUN and creatinine of 21 and 0.98. Sodium 136, potassium 4.5, chloride 104, bicarb 26, troponin 0.04. EQUIPMENT UTILIZED: 1. The right radial artery sheath was a 6-Vietnamese Rocklin sheath. 2. The diagnostic coronary catheters included a 5-Vietnamese TIG4 catheter in addition to a 6-Vietnamese JL 3.5 curve diagnostic catheter. 3. The left heart catheterization catheter was a 5-Vietnamese PIG short radial catheter. 4. The guide catheter utilized was a 6-Vietnamese Heartrail III IR 1.0 catheter. 5. The interventional wire was an All Star radial length wire. 6. Balloon angioplasty catheter utilized was a 2.0 x 15 mm long Emerge balloon and a 2.5 x 12 mm long Emerge balloon. 7. The stent utilized is a 2.75 x 26 mm Orsiro drug-eluting stent. 8. Post stent deployment balloon catheter was a 2.75 x 20 mm NC Emerge balloon. 9. The diagnostic guidewire was a La 260 length guidewire. 10. The closure device utilized was a regular length Vasc Band. MEDICATIONS GIVEN DURING THE PROCEDURE: The patient had already received heparin bolus, Brilinta 180 mg, and full dose aspirin. A radial artery cocktail of 300 mcg of nitroglycerin and 3 mg verapamil were utilized, 1% Xylocaine was utilized for local anesthesia. During the case, the patient was started on a dopamine drip for bradycardia and hypotension in addition to multiple amps of atropine for bradycardia. The patient also received 2.5 mg of Lopressor intravenously towards the end of the case. DESCRIPTION OF PROCEDURE: The patient was brought to the cardiovascular lab in an emergent situation. A formal time-out was performed. He was prepped and draped in sterile fashion, and under ultrasound guidance, the right radial artery was cannulated and a sheath was placed. Diagnostic coronary arteriography was performed documenting the totally occluded right coronary artery. Of note, the patient developed significant bradycardia, heart block, dopamine was instituted for hypotension and additional heparin bolus was given and guiding views were obtained using the guide catheter. The wire was advanced across the right coronary artery and balloon angioplasty was performed. With this, the patient significantly stabilized to a normal rhythm and tachycardic rhythm if anything due to the dopamine. The dopamine was able to be weaned. Initially a stent was tried to be delivered and was unsuccessful. Further balloon angioplasty was performed utilizing the 2.5 x 12 mm long Emerge balloon and the ticckle drug-eluting stent was deployed with post- deployment inflations made to high pressure. Following this, further injections into the left coronary artery system were made once the patient was stabilized. Following this, left heart catheterization was performed followed by left ventriculography with a total of 24 cc of Omnipaque dye at a rate of 12 cc per second. At the end of the case, the catheter and sheath were removed and then hemostasis was obtained with a Vasc Band. The reverse Barbeau was a B. The total contrast used was 155 cc of Omnipaque dye. The radiation exposure included 12.3 minutes of fluoro time. The air kerma radiation was 1151 milligray. The DAP radiation was 6874 microgray per meter squared. RESULTS: HEMODYNAMIC DATA: Left heart catheterization - revealed central aortic pressure to be 129/70 with a mean of 97. Left ventricular pressure 126 over left ventricular end diastolic pressure of 67. LEFT VENTRICULOGRAPHY: Performed in the CHUNG projection revealed very mild proximal inferior wall hypokinesis with hyperdynamic left ventricular systolic function. The overall EF is 65%. CORONARY ARTERIOGRAPHY: A. Left coronary artery: 1. Left main - widely patent. 2. Left anterior descending artery. The proximal portion of left anterior descending artery had calcium. There was tapering of the proximal portion of the left anterior descending artery just prior to the first septal pharmacy order entry technician with what appeared to be a focal 80% narrowing noted. Of note, this was just prior to the takeoff of the first bifurcating diagonal branch. The medial branch of the bifurcating diagonal branch had a narrowing which appeared to be 65%. Of note, it was a small caliber vessel which was less than 1.7 mm. The continuation of left anterior descending artery had a 30% mid lesion. Of note, the left anterior descending artery traversed to the apical region on to the distal inferior wall. Of note, the first diagonal branch was a small caliber vessel. Even at its origin, the size of the vessel being just barely 2 mm. 3. Circumflex artery - A nondominant vessel supplying a high first obtuse marginal branch followed by a small caliber second obtuse marginal branch ending in a low lying obtuse marginal branch. There is a 40 % lesion seen in the distal circumflex. B. Right coronary artery - a dominant vessel supplying the PDA and 3 posterior left ventricular branches in addition to several acute marginal branches. Initially, the artery was totally occluded in its mid segment. On recanalization, there was a subtotally occluded acute marginal branch originating from the area of stenosis. There was diffuse disease in the mid portion. INTERVENTION INTO THE MID RIGHT CORONARY ARTERY: Balloon angioplasty and placement of a 2.75 x 26 mm long TwentyFeetiro drug-eluting stent post dilated to 2.85 mm with TREVOR- 3 flow, no dissection seen and 0% residual stenosis. Of note, at the end of the case, there was still thread- like filling to a mid acute marginal branch. The distal portion had mild 30% narrowing just prior to turning on the inferior surface of the heart. There were no other significant obstruction seen. OVERALL ASSESSMENT: Successful intervention into totally occluded mid right coronary artery in the throes of an acute inferior wall acute ST-segment elevation myocardial infarction. The patient will be maintained on dual antiplatelet therapy, statin therapy, in addition to aggressive risk factor management. Of note, he does have what appears to be a very focal short significant proximal LAD lesion. Interestingly, the stress echo that was performed prior to him developing the acute ST-segment elevation inferior OR revealed, if anything, hyperdynamic wall motion to the anterior wall which would suggest the LAD lesion is not provoking significant coronary artery ischemia. I will review that stress test to determine the level of exertion he did obtain. If he did obtain a good degree of exertion, we most likely can attempt initial medical management, stabilization and consider repeat stress testing or FFR analysis as an outpatient in the future. This information was shared with the hospitalist involved with the patient's case. The patient's was also called and updated on the patient's status given the current inability of visitors to come to the hospital in light of the COVID outbreak. [id number]/[facility] #: [id number] DARIO
[2019-11-05] MEDS: Atorvastatin* 80 MG TAB PO SCH (16:28)
[2019-11-05] MEDS: Ezetimibe TAB* 10 MG PO SCH (16:28)
[2019-11-06] MEDS: amLODIPine TAB* 5 MG PO SCH (07:54)
[2019-11-06] MEDS: Pantoprazole TAB * 40 MG TAB PO SCH (07:54)
[2019-11-06] MEDS: Metoprolol Tartrate TAB* 25 MG PO SCH (07:54)
[2019-11-06] MEDS: Aspirin EC TAB* 81 MG TAB.EC PO SCH (07:54)
[2019-11-06] MEDS: Ticagrelor* 90 MG TAB PO SCH (07:54)
--- NOTE | 2019-11-06 12:16 | DS ---
CC: Dr. Bernard; Dr. Singleton; Dr. Barker * DISCHARGE SUMMARY: DATE OF ADMISSION: 11/03/19 DATE OF DISCHARGE: 11/06/19 PRIMARY CARE PROVIDER: Dr. Bernard. DISCHARGE DISPOSITION: Home. CONDITION AT DISCHARGE: Stable. DISCHARGE DIAGNOSES: 1. Acute inferior wall ST elevation myocardial infarction, status post cardiac catheterization and intervention and stent into the right coronary artery performed by Dr. Barker on 11/04/19. 2. Dyslipidemia. 3. Hypertension. SECONDARY DIAGNOSES: 1. Hypercholesterolemia. 2. Hypertension. 3. Prostate cancer, status post radiation. 4. Anxiety. 5. Gastroesophageal reflux disease. MEDICATIONS AT DISCHARGE: 1. Amlodipine 5 mg daily. 2. Aspirin 81 mg daily. 3. Lipitor 80 mg daily. 4. Zetia 10 mg daily. 5. Lopressor 25 mg b.i.d. 6. Nitroglycerin 0.4 mg, use 1 tablet sublingually for chest pain. If the chest pain does not resolve in 15 minutes, call 911. 7. Protonix 40 mg daily. 8. Brilinta 90 mg b.i.d. Please note that the patient was dispensed one-month supply of Brilinta at discharge from the hospital. CONSULTATIONS DURING THE HOSPITAL STAY: Included Dr. Barker from Interventional Cardiology. PROCEDURES PERFORMED: Included cardiac catheterization performed by Dr. Barker on 11/04/19 with overall assessment: "Successful intervention in totally occluded mid right coronary artery in the of acute inferior wall acute ST elevation DC. The patient will be maintained on dual-antiplatelet therapy, statin therapy in addition to aggressive risk factor management. Of note, he does have what appears to be very focal short segment significant proximal LAD lesion of 80%. Interestingly, the stress echo that was performed prior to him developing the acute ST elevation inferior DC revealed, if anything, hyperdynamic wall motion to the anterior wall which could suggest the LAD lesion is not provoking significant coronary artery ischemia. I will review that stress test to determine the level of exertion he did obtain. If he did obtain a good degree of exertion, we most likely can attempt initial medical management, stabilization, and consider repeat stress testing or FFR analysis as an outpatient in the future." LABORATORY DATA DURING THE HOSPITAL STAY: Included: On 11/05/19, sodium of 136 , potassium 4.6, chloride 106, carbon dioxide 26, BUN 19, creatinine 1.02. Liver function test showed small elevation of AST of 43, otherwise unremarkable. Please note that the troponin peaked at 11.9 on 11/04/19. The patient's cholesterol profile showed triglycerides 238, total of cholesterol of 233, LDL of 156, and HDL of 29.7. CBC on 11/05/19, white blood cell count of 5.9, hemoglobin of 13.0, hematocrit of 38, and platelets 204. Transthoracic echocardiogram obtained on 11/03/19 showed systolic function of the right ventricle is normal with EF of 55% to 60% with Doppler parameters consistent with abnormal left ventricular relaxation, grade 1 diastolic dysfunction. It showed mitral valve prolapse with mild regurgitation and aortic valve with trace to mild regurgitation. HOSPITALIZATION COURSE: Elder Lawrence is a 79-year-old male with a history of hypertension and anxiety, who presented to the hospital complaining of chest tightness. For further details, please see history and physical dictated on the day of admission. Shortly, the patient's initial workup showed negative troponins and unremarkable EKG. The patient underwent a cardiac stress test on a treadmill and he actually did pretty well during the treadmill, but right after the treadmill when he sat down in the wheelchair, he started experiencing acute substernal chest pain. At this point, his EKG was performed which developed ST elevation DC in the inferior leads. A STEMI alert was called and the patient was urgently taken to the computer lab assistant, where Dr. Barker noted an occlusion of the RCA that was intervened to with a stent. The patient also was noted to have a short segment of 80% of LAD stenosis that was not intervened to at this point. Please see the report from the cardiac catheterization as above. Post cardiac catheterization, the patient did very well. He spent overnight in the ICU and then was transferred to the medical floor. He was ambulated without any need of oxygen and no chest pain symptoms. The patient was placed on Zetia, Lipitor, Brilinta, and aspirin. He was continued on Norvasc that was started at admission. His blood pressure had been controlled. He is going to go home today with recommendations to follow up with Dr. Barker. Dr. Barker's office will call the patient with an appointment post cath. The patient is also recommended to call Dr. Singleton's office to schedule an appointment in 1 to 2 weeks. He is also recommended to follow up with Dr. Bernard in 3 to 7 days. PHYSICAL EXAMINATION: At the time of discharge, blood pressure of 115/51, heart rate of 63 and regular, respiratory rate 16, oxygen saturation 98% on room air, temperature 98.3. General: The patient is a very pleasant 79-year- old male who is in no acute distress. The patient is alert and oriented x3. Please note that he is very hard of hearing and usually reads lips. HEENT: Head: Atraumatic, normocephalic. Eyes: Pupils are equal, reactive to light and accommodation. Oropharynx is clear. Mucosa moist. Neck: Supple. No JVD. No bruits bilaterally. Cardiovascular: Regular rate and rhythm. No murmur. Respiratory: Clear to auscultation bilaterally. Abdomen: Soft, nontender. Bowel sounds are present in all 4 quadrants. Extremities: There is no edema. Pulses are 2+ bilaterally. There is no clubbing and no cyanosis. On neuro evaluation, speech is clear. Cranial nerves II through XII are grossly intact. Motor strength is 5/5 bilaterally. Please note that this is a short summary of the patient's complicated hospitalization. Please refer to further medical records for details. TIME SPENT: Approximately 45 minutes was spent in preparation of the patient's discharge. [id number]/[facility] #: [id number] DARIO
[2019-11-06 15:30] VITALS: BP 127/57
== END 2019-11-06 12:37 | disposition home or self-care (01) | DRG 247 ==
LOC: ED 11:21 → MEDTELE 15:02 → OBSVTOIN 11-04 10:00 → ICU 11-04 11:34 → MEDTELE 11-05 19:26
PROVIDERS: ADMIT Internal Medicine; ATTEND Internal Medicine
PROC: 4A023N7 Measurement of Cardiac Sampling and Pressure, Left Heart, Percutaneous Approach (ICD-10-PCS; 2019-11-04)
PROC: B211YZZ Fluoroscopy of Multiple Coronary Arteries using Other Contrast (ICD-10-PCS; 2019-11-04)
PROC: B215YZZ Fluoroscopy of Left Heart using Other Contrast (ICD-10-PCS; 2019-11-04)
PROC: 027044Z Dilation of Coronary Artery, One Artery with Drug-eluting Intraluminal Device, Percutaneous Endoscopic Approach (ICD-10-PCS; principal; 2019-11-04 10:00)
DX: I21.09 ST elevation (STEMI) myocardial infarction involving other coronary artery of anterior wall (principal); I25.119 Atherosclerotic heart disease of native coronary artery with unspecified angina pectoris; E78.5 Hyperlipidemia, unspecified; I10 Essential (primary) hypertension; E78.00 Pure hypercholesterolemia, unspecified; F41.9 Anxiety disorder, unspecified; K21.9 Gastro-esophageal reflux disease without esophagitis; F41.0 Panic disorder [episodic paroxysmal anxiety]; I71.4 Abdominal aortic aneurysm, without rupture; Z79.82 Long term (current) use of aspirin; Z79.899 Other long term (current) drug therapy; Z88.2 Allergy status to sulfonamides
CPT/HCPCS: 36415; 71046; 76937; 80048; 80053; 80061; 82550; 82553; 83036; 83721; 83735; 84484; 85025; 85347; 85610; 86850; 86900; 86901; 93005; 93304; 93306; 93351; 96372; 99284; A9270-GY; C1725; C1769; C1874; C1887; C9606-RC; G0378; J0153; J0461; J0583; J1265; J1644; J1650; J2250; J3010; J3490